=== PATIENT | female | born 1950 | race Caucasian/White ===

== ENCOUNTER → 2016-12-28 | Outpatient (CLI) | payer MEDICARE, MEDICAID ==
[~2016-12-28] MED LIST: ALBUTEROL200 PUFFS/ IH; COMBIVENT INH14.7 GM IN; COMBIVENT RESPI1 SPR IH; DORYX100 MG PO; DUONEB 3 MG/3 ML3 ML IH; ESTRACE 0.5MG0.5 MG PO; FENOFIBRATE160 MG PO; GABAPENTIN 400400 MG PO; HYDROCODONE1 TABLET PO; IBUPROFEN600 MG; IMITREX50 MG PO; LEVAQUIN500 MG PO; LEXAPRO 10 MG T10 MG PO; LORTAB 5/500 501 TAB PO; LOVASTATIN40 MG PO; MAXALT10 MG PO; MAXZIDE 25 MG-31 TA1 PO; MECLIZINE12.5 MG PO; MEDROL 4MG. DOSE4 MG PO; MIRALAX17 GM/DOSE PO; NEURONTIN 300M300 MG OR; NICODERM C21 MG/24 H TD; NORCO 325 MG-51 TAB PO; PHENERGAN 25MG.25 M1 PO; PREDNISONE 20MG20 MG PO; PREMARIN0.625 MG PO; PRILOSEC40 MG PO; SEPTRA DS 800 M1 TAB PO; SEROQUEL200 MG PO; SEROQUEL50 MG PO; SYNTHROID 0.00.05 MG PO; TIZANIDINE HCL 44 MG NG; XANAX0.5 MG PO; ZYRTEC 10MG TAB10 MG PO
--- NOTE | 2017-01-05 06:32 | RADIOLOGY REPORT PS360 ---
EXAM: CT LUNG LOW DOSE WO CONTRAST COMPARISON: None HISTORY: 66 year old female asymptomatic with 55 pack-year smoking history ORDERING PHYSICIAN: Nataly Jackson MD PATIENT AGE: 66 years TECHNIQUE: The exam was performed on a GE Light Speed [address] scanner using 2.95 mGy CTDI. A low dose helical CT CHEST was performed on a multi-detector scanner The LDCT was performed in a facility that meets the criteria for the screening program. Data regarding this exam was submitted to [employer] which is an approved registry. The order for this exam indicates that it came as a result of a lung cancer screening counseling shard decision-making visit that included all the elements required of such a visit including smoking cessation. The radiologist interpreting this exam meets the [facility] criteria for the LDCT lung cancer screening program. The exam is reported using the Lung-RADS classification scale and reported to the [employer]CR registry. NOTE: This study was performed for the specific purposes of lung cancer screening and is not an alternative to diagnostic chest CT. RADIATION DOSE: CTDI vol(CT dose Index-volume) = 2.95 mGy DLP (Dose Length Product) = 113.95 mGcm FINDINGS: There is a suspicious noncalcified spiculated nodule in the right upper lobe laterally measuring 11 x 9 mm. There are additional noncalcified nodular densities on the right in the right upper lobe and right lower lobe. These range in size from 2 mm to 8 mm. Most have a semisolid appearance. Semisolid/ground glass nodule present in the left upper lobe medially at 8 mm. These nodules could be neoplastic or inflammatory/infective. No mediastinal or hilar adenopathy. Mild centrilobular emphysematous changes noted with obstructive chronic bronchitis. No effusions. Upper abdominal images demonstrates cholelithiasis. IMPRESSION: 1. Lung RADS Category: 4X, suspicious, greater than 15% chance of malignancy. 11 mm spiculated right upper lobe nodule. 2. Other findings: Other smaller nodules in both right and left lung which could be neoplastic or inflammatory/infective. Cholelithiasis RECOMMENDATIONS: Pulmonary consult. Recommend PET/CT for further evaluation. Alternatively, dedicated CT chest without and with contrast may provide further evaluation to determine the enhancement characteristics of the suspicious nodule
== END ==
LOC: RAD 12:34
DX: Z87.891 Personal history of nicotine dependence (principal); F17.200 Nicotine dependence, unspecified, uncomplicated; Z12.2 Encounter for screening for malignant neoplasm of respiratory organs
CPT/HCPCS: G0297